=== PATIENT | female | born 1980 | race Caucasian/White ===

== ENCOUNTER 2016-11-23 20:47 | Emergency (ER) | payer SELFPAY ==
[~2016-11-23] VITALS: Ht 170.2 cm; Wt 59.0 kg
[2016-11-23 21:00] VITALS: BP 117/62
--- NOTE | 2016-11-23 21:22 | Emergency Room Report ---
History of Present Illness General Chief Complaint: General Complaint Source: Patient, Medical Record Present Illness HPI Is a 36-year-old female brought in by EMS for altered mental status. She was passed out and 911 was called. She said she fell asleep. She said she was watching somebody's bags and took one of them. Questionable drugs. Denies suicidal thought homicidal thought. Denies any other complaint. No hallucination. Allergies: Coded Allergies: No Known Allergies (Unverified , 11/23/16) Patient History Past Medical History: see triage record, old chart reviewed Past Surgical History: other Family History: none Social History: tobacco use, ETOH, drug use Last Menstrual Period: 10/13/16 Now: No Immunizations: other Reviewed Nursing Documentation: PMH: Agreed, PSxH: Agreed Nursing Documentation-PMH Past Medical History: No History, Except For History Of Psychiatric Problem: Yes - Bipolar Review of Systems ENT: Denies: sore throat Cardiovascular: Denies: chest pain, palpitations Gastrointestinal/Abdominal: Denies: diarrhea, nausea, vomiting Musculoskeletal: Denies: back problems Skin: Denies: rash Neurological: Denies: LYNN, seizures All Other Systems: negative except mentioned in HPI Physical Exam Vital Signs Date Time Temp Pulse Resp B/P Pulse Ox O2 Delivery O2 Flow Rate FiO2 11/23/16 20:39 97.2 92 18 117/62 98 Room Air vitals normal Sp02 EP Interpretation: reviewed, normal General Appearance: alert/responsive, no apparent distress, non-toxic Head: normocephalic, atraumatic Eyes: PERRL, EOMI ENT: oropharynx normal Neck: supple/symm/no masses Respiratory: effort normal, no rhonchi, no wheezing Cardiovascular: no murmur, gallop, rub Gastrointestinal: non-tender, no mass, non-distended, no rebound/guarding, normal bowel sounds Musculoskeletal: gait & station normal Neurologic: oriented x3, sensory intact, motor strength/tone normal Psychiatric: anxious - Crying Skin: no rash, normal palpation Medical Decision Making Diagnostic Impression: Primary Impression: Anxiety ER Course patient presents with anxiety and stress response. Question of drug abuse. No suicidal thought homicidal thought. No criteria for 5150. Last Vital Signs Date Time Temp Pulse Resp B/P Pulse Ox O2 Delivery O2 Flow Rate FiO2 11/23/16 20:39 97.2 92 18 117/62 98 Room Air Status: improved Disposition: HOME, SELF-CARE Condition: Stable Additional Instructions: Followup with your Dr. in 7 days. Followup with your mental health DrNishi also. Return if symptom worsen. Abstain from drugs and alcohol. EDGARD ARMENTA M.D. Nov 23, 2016 21:21
[2016-11-23 21:30] VITALS: BP 117/62
== END 2016-11-23 22:00 | disposition home or self-care (01) ==
LOC: EDBD 20:47 → EMR 21:43
DX: F41.9 Anxiety disorder, unspecified (principal)
CPT/HCPCS: 99283